=== PATIENT | male | born 1980 | race Caucasian/White ===

== ENCOUNTER 2017-01-20 11:43 | Inpatient (IN) | payer OTHER ==
[~2017-01-20] VITALS: Ht 175.3 cm; Wt 96.8 kg
[2017-01-20] MEDS ORDERED: NACL 0.9% 3 ML SYG IV SCH (14:30)
[2017-01-20] MEDS ORDERED: NICOTINE (21 MG/24 HR) PATCH TRANSDERM ONE (14:30)
--- NOTE | 2017-01-20 14:53 | HP ---
Date/Time of Note Date/Time of Note DATE: 01/20/17 TIME: 14:41 Assessment/Plan VTE Prophylaxis VTE Prophylaxis Intervention: SCD's Assessment/Plan Assessment/Plan 36 yo M presented with dark urine and myalgias after working out hard for the first time in 2 years, found to have marked CK elevation. Clinical scenario consistent with rhabdomyolysis Rhabdo -aggressive IVFs -check CM in AM Transaminitis: likely 2/2 rhabdo -recheck in AM. If not improving, check Hepatitis serologies and abd US PSYCH -cont home clonidine, Resperal -NRT general diet SQH HPI/ROS Admit Date/Time Admit Date/Time Jan 20, 2017 at 13:45 Hx of Present Illness CC: "I kept going until I won the bet" HPI 36 yo M with pmhx tobacco abuse transferred from [facility] where he had presented with dark urine and mylagias, CK found to be >20k. Pt is a self described "gym rat," though states he hadn't worked out in 2 years. Made a bet 2 days ago with someone about how many push ups he could do and stated he kept going "until I won the bet." Since yesterday pt has been having severe myalgias and dark urine. Presented to OSH and found to have rhabdo PMMhx: Bipolar d/o tobacco abuse Soc Hx: lives in the community Exam/Review of Systems Exam Exam nad EOMI MMM covered in tattoos no mrg lungs clear abd soft no rashes [facility] labs 9.1>17.5/48<208 CK >20k, ALT 291, AST 915, Cr 0.9 INR 0.9, albumin 4.5 No UA done Medications Medications Current Medications Sodium Chloride (NS) 1,000 ml @ 250 mls/hr Q4H IV ; Start 01/20/17 at 14:15; Status UNV Nicotine (Nicoderm 21 Mg/ 24hr) 1 patch ONCE ONCE TRANSDERM ; Start 01/20/17 at 14:30; Stop 01/20/17 at 14:31; Status UNV Heparin Sodium (Porcine) (Heparin (5000 Units/0.5 ml)) 5,000 unit Q8 SC ; Start 01/20/17 at 22:00; Status UNV BRANDON KHOURY MD Jan 20, 2017 14:53
[2017-01-20] MEDS ORDERED: NICOTINE POLACRILEX 2 MG GUM BUCCAL PRN (15:00)
[2017-01-20] MEDS: SOD CHLORIDE 0.9% 1,000 ML IV SCH ×4 (15:04→22:15)
[2017-01-20] MEDS: NICOTINE (21 MG/24 HR) PATCH TRANSDERM SCH (15:15)
[2017-01-20] MEDS: traMADol 50 MG TAB PO PRN ×2 (15:16→21:18)
[2017-01-20 15:27] VITALS: Ht 175.3 cm; Wt 96.8 kg
[2017-01-20 19:57] VITALS: BP 129/77; RESP 18
[2017-01-20] MEDS: HEPARIN 5,000 UNIT/0.5 ML VIAL SC SCH (21:24)
[2017-01-20] MEDS ORDERED: ZOLPIDEM 5 MG TAB PO ONE (23:00)
[2017-01-21 02:09] VITALS: BP 118/73; RESP 18
[2017-01-21] MEDS: SOD CHLORIDE 0.9% 1,000 ML IV SCH ×5 (02:15→18:09)
[2017-01-21] MEDS: HEPARIN 5,000 UNIT/0.5 ML VIAL SC SCH ×3 (06:21→21:50)
[2017-01-21 06:39] LABS: ALBUMIN 3.4 g/dl (3.3-4.9); ALBUMIN/GLOBULIN RATIO 1.36; BILIRUBIN,INDIRECT 0.4 mg/dl (0-1.1); BILIRUBIN,TOTAL 0.4 mg/dl (0.2-1.3); CALCIUM 8.6 mg/dl (8.4-10.2); CREATININE 0.87 mg/dl (0.61-1.24); POTASSIUM 4.3 mmol/L (3.5-5.1); TOTAL PROTEIN 5.9 g/dl (6.1-8.1)
[2017-01-21] MEDS: NICOTINE (21 MG/24 HR) PATCH TRANSDERM SCH (08:29)
[2017-01-21] MEDS: RISPERIDONE 2 MG TAB PO SCH (08:30)
[2017-01-21 08:38] VITALS: BP 124/70; PULSE 82; RESP 18
[2017-01-21] MEDS: traMADol 50 MG TAB PO PRN (08:41)
[2017-01-21] MEDS ORDERED: NICOTINE (21 MG/24 HR) PATCH TRANSDERM SCH (09:00)
[2017-01-21 12:04] LABS: HEPATITIS B CORE ANTIBODY NEGATIVE (NEGATIVE)
--- NOTE | 2017-01-21 12:58 | RADRPT ---
PROCEDURE: US right upper quadrant abdomen. CLINICAL INDICATION: Elevated liver function tests TECHNIQUE: Multiple real-time images were acquired of the patient's right upper quadrant abdomen utilizing a high resolution transducer. COMPARISON: None FINDINGS: The liver demonstrates normal echogenicity and mildly enlarged size measuring 18.8 cm without focal lesions. Patent portal vein. Normal gallbladder without gallstones, pericholecystic fluid or gallbla dder wall thickening. Negative sonographic Khalil's sign. No intrahepatic or extrahepatic biliary d ilatation. The common bile duct measures 3 mm in maximal dimension. The visualized portions of the pancreas are normal. The right kidney is normal size with normal echogenicity and morphology. The right kidney measures 11.1 cm. No hydronephrosis or perinephric fluid collections. There are no ar eas of increased echogenicity to suggest nephrolithiasis. Normal caliber aorta and IVC. No peritonea l free fluid. IMPRESSION: Normal right upper quadrant abdominal ultrasound. RPTAT:AAJJ Physician Addie Date Time Electronically viewed and signed by Physician Addie on 01/21/2017 12:58 /
[2017-01-21 13:28] VITALS: BP 128/65; PULSE 76; RESP 18
--- NOTE | 2017-01-21 13:28 | PN ---
Date/Time of Note Date/Time of Note DATE: 01/21/17 TIME: 13:27 Assessment/Plan VTE Prophylaxis VTE Prophylaxis Intervention: SCD's Lines/Catheters IV [facility] Peripheral IV Urinary Cath still in place: No Assessment/Plan Assessment/Plan 36 yo M presented with dark urine and myalgias after working out hard for the first time in 2 years, found to have marked CK elevation. Clinical scenario consistent with rhabdomyolysis Rhabdo -cont aggressive IVFs -re check CM in AM Transaminitis: likely 2/2 rhabdo Hep C: incidental finding. will dw pt prior to discharge. 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 PSYCH -cont home clonidine, Resperal -NRT general diet SQH Subjective 24 Hr Interval Summary Free Text/Dictation Pt requesting more pain medication Exam/Review of Systems Vital Signs Vitals Vital Signs Date Time Temp Pulse Resp B/P Pulse Ox O2 Delivery O2 Flow Rate FiO2 01/21/17 08:38 98.0 82 18 124/70 96 Room Air Intake and Output 01/20/17 01/20/17 01/21/17 15:00 23:00 07:00 Intake Total 1000 ml 1840 ml Output Total 500 ml Balance 1000 ml 1340 ml Exam nad no mrg lungs clear abd soft no rashes labs: Hep A exposure v vaccination, Hep B vaccinated, +HepC, -HIV Liver US nl UTox + for THC and opiates (likely got opiates at OSH prior to transfer) Results Result Diagram: 01/21/17 0545 Results 24 hrs Laboratory Tests Test 01/21/17 05:45 01/21/17 10:25 Sodium Level 140 Potassium Level 4.3 Chloride Level 109 Carbon Dioxide Level 25 Anion Gap 10 Blood Urea Nitrogen 13 Creatinine 0.87 Glucose Level 101 Calcium Level 8.6 Total Bilirubin 0.4 Direct Bilirubin 0.00 Indirect Bilirubin 0.4 Aspartate Amino Transf (AST/SGOT) 1185 H Alanine Aminotransferase (ALT/SGPT) 385 H Alkaline Phosphatase 73 Creatine Kinase 55137 H Total Protein 5.9 L Albumin 3.4 Globulin 2.50 Albumin/Globulin Ratio 1.36 Hepatitis A Antibody Total Pending Hepatitis B Surface Antigen NEGATIVE Hepatitis B Surface Antibody POSITIVE H Hepatitis B Core Total Antibody Pending Hepatitis C Antibody Pending HIV (1&2) Antibody Pending Medications Medications Current Medications Sodium Chloride (NS) 1,000 ml @ 125 mls/hr Q8H IV Last administered on 05:21; Admin Dose 250 MLS/HR; Start 01/20/17 at 14:15 Heparin Sodium (Porcine) (Heparin (5000 Units/0.5 ml)) 5,000 unit Q8 SC Last administered on 01/21/17 06:21; Admin Dose 5,000 UNIT; Start 01/20/17 at 22:00 Nicotine Polacrilex (Nicorette) 2 mg Q2H PRN BUCCAL ANXIETY; Start 01/20/17 at 15:00 Clonidine (Catapres) 0.2 mg TID PO Last administered on 01/21/17 08:34; Admin Dose 0.2 MG; Start 01/20/17 at 21:00 Risperidone (Risperdal) 2 mg DAILY PO Last administered on 01/21/17 08:30; Admin Dose 2 MG; Start 01/21/17 at 09:00 Tramadol HCl (Ultram) 50 mg Q6H PRN PO pain Last administered on 01/21/17 08: 41; Admin Dose 50 MG; Start 01/20/17 at 15:00 Nicotine (Nicoderm 21 Mg/ 24hr) 1 patch DAILY TRANSDERM Last administered on 08:29; Admin Dose 1 PATCH; Start 01/20/17 at 15:30 BRANDON KHOURY MD Jan 21, 2017 13:28
[2017-01-21 13:41] LABS: OPIATES Positive (NEGATIVE)
[2017-01-21 13:42] LABS: BARBITURATES Negative (NEGATIVE); BENZODIAZEPINES Negative (NEGATIVE); CANNABINOIDS Positive (NEGATIVE); COCAINE Negative (NEGATIVE)
[2017-01-21] MEDS: morphine 2 MG INJ IV PRN ×2 (14:04→18:07)
[2017-01-21] MEDS: GUAIFENESIN 20 MG/ML 5ML CUP PO PRN (19:58)
[2017-01-21 20:01] VITALS: BP 126/58; RESP 18
[2017-01-21] MEDS ORDERED: DIAZEPAM 5 MG/ML SYG IV ONE (20:30)
[2017-01-22 01:46] VITALS: BP 110/62; RESP 18
[2017-01-22] MEDS: SOD CHLORIDE 0.9% 1,000 ML IV SCH ×4 (02:36→19:38)
[2017-01-22] MEDS: morphine 2 MG INJ IV PRN ×2 (06:08→11:06)
[2017-01-22] MEDS: GUAIFENESIN 20 MG/ML 5ML CUP PO PRN (06:08)
[2017-01-22] MEDS: HEPARIN 5,000 UNIT/0.5 ML VIAL SC SCH ×3 (06:13→21:40)
[2017-01-22 07:03] LABS: ALBUMIN/GLOBULIN RATIO 1.25; CALCIUM 8.6 mg/dl (8.4-10.2); CREATININE 0.95 mg/dl (0.61-1.24); POTASSIUM 4.1 mmol/L (3.5-5.1); TOTAL PROTEIN 5.4 g/dl (6.1-8.1)
[2017-01-22 08:00] VITALS: BP 106/61; PULSE 91; RESP 16
[2017-01-22 08:27] LABS: BILIRUBIN,INDIRECT 0.1 mg/dl (0-1.1); BILIRUBIN,TOTAL 0.1 mg/dl (0.2-1.3)
[2017-01-22] MEDS: RISPERIDONE 2 MG TAB PO SCH (09:40)
[2017-01-22] MEDS: traMADol 50 MG TAB PO PRN (09:40)
[2017-01-22] MEDS: NICOTINE (21 MG/24 HR) PATCH TRANSDERM SCH (09:41)
[2017-01-22 13:31] VITALS: BP 90/45; RESP 16
--- NOTE | 2017-01-22 14:26 | PN ---
Date/Time of Note Date/Time of Note DATE: 01/22/17 TIME: 14:24 Assessment/Plan VTE Prophylaxis VTE Prophylaxis Intervention: SCD's Lines/Catheters IV Catheter Type (from Nrs): Peripheral IV Urinary Cath still in place: No Assessment/Plan Assessment/Plan 36 yo M presented with dark urine and myalgias after working out hard for the first time in 2 years, found to have marked CK elevation. Clinical scenario consistent with rhabdomyolysis Rhabdo -cont aggressive IVFs -re check CM in AM Transaminitis: likely 2/2 rhabdo Hep C: Pt states he was actually treated with IFN several years ago await VL to eval for recurrence PSYCH -cont home clonidine, Resperal -NRT general diet SQH Subjective 24 Hr Interval Summary Free Text/Dictation R shoulder pain overnight Exam/Review of Systems Vital Signs Vitals Vital Signs Date Time Temp Pulse Resp B/P Pulse Ox O2 Delivery O2 Flow Rate FiO2 01/22/17 13:31 98.3 67 16 90/45 92 01/22/17 08:00 Room Air Intake and Output 01/21/17 01/21/17 01/22/17 15:00 23:00 07:00 Intake Total 3070 ml 2150 ml Output Total 450 ml Balance 3070 ml 1700 ml Exam nad no mrg lungs clear abd soft no rashes Results Result Diagram: 01/22/17 0552 Results 24 hrs Laboratory Tests Test 01/22/17 05:52 Sodium Level 138 Potassium Level 4.1 Chloride Level 110 Carbon Dioxide Level 26 Anion Gap 6 L Blood Urea Nitrogen 13 Creatinine 0.95 Glucose Level 122 Calcium Level 8.6 Total Bilirubin 0.1 L Direct Bilirubin 0.00 Indirect Bilirubin 0.1 Aspartate Amino Transf (AST/SGOT) 1176 H Alanine Aminotransferase (ALT/SGPT) 442 H Alkaline Phosphatase 71 Creatine Kinase 22874 #H Total Protein 5.4 L Albumin 3.0 L Globulin 2.40 Albumin/Globulin Ratio 1.25 Medications Medications Current Medications Sodium Chloride (NS) 1,000 ml @ 125 mls/hr Q8H IV Last administered on 11:06; Admin Dose 125 MLS/HR; Start 01/20/17 at 14:15 Heparin Sodium (Porcine) (Heparin (5000 Units/0.5 ml)) 5,000 unit Q8 SC Last administered on 9/22/17at 13:49; Admin Dose 5,000 UNIT; Start 01/20/17 at 22:00 Nicotine Polacrilex (Nicorette) 2 mg Q2H PRN BUCCAL ANXIETY; Start 01/20/17 at 15:00 Clonidine (Catapres) 0.2 mg TID PO Last administered on 01/22/17 09:41; Admin Dose 0.2 MG; Start 01/20/17 at 21:00 Risperidone (Risperdal) 2 mg DAILY PO Last administered on 01/22/17 09:40; Admin Dose 2 MG; Start 01/21/17 at 09:00 Tramadol HCl (Ultram) 50 mg Q6H PRN PO pain Last administered on 01/22/17 09: 40; Admin Dose 50 MG; Start 01/20/17 at 15:00 Nicotine (Nicoderm 21 Mg/ 24hr) 1 patch DAILY TRANSDERM Last administered on 09:41; Admin Dose 1 PATCH; Start 01/20/17 at 15:30 Morphine Sulfate (morphine) 2 mg Q4H PRN IV pain Last administered on 11:06; Admin Dose 2 MG; Start 01/21/17 at 13:30 Guaifenesin (Robitussin Liquid Cup) 100 mg Q4H PRN PO COUGH Last administered on 01/22/17 06:08; Admin Dose 100 MG; Start 01/21/17 at 18:30 BRANDON KHOURY MD Jan 22, 2017 14:26
[2017-01-22] MEDS: morphine 4 MG/ML VIAL IV PRN ×2 (15:05→20:08)
[2017-01-22 19:59] VITALS: BP 126/61; RESP 20
[2017-01-22] MEDS ORDERED: DIAZEPAM 5 MG/ML SYG IV ONE (22:00)
[2017-01-23 02:00] VITALS: BP 119/59; RESP 20
[2017-01-23] MEDS: SOD CHLORIDE 0.9% 1,000 ML IV SCH ×2 (03:34→10:44)
[2017-01-23] MEDS: HEPARIN 5,000 UNIT/0.5 ML VIAL SC SCH (06:12)
[2017-01-23 06:37] LABS: ALBUMIN 3.3 g/dl (3.3-4.9); ALBUMIN/GLOBULIN RATIO 1.17; BILIRUBIN,INDIRECT 0.2 mg/dl (0-1.1); BILIRUBIN,TOTAL 0.2 mg/dl (0.2-1.3); CALCIUM 8.3 mg/dl (8.4-10.2); CREATININE 0.95 mg/dl (0.61-1.24); POTASSIUM 4.5 mmol/L (3.5-5.1); TOTAL PROTEIN 6.1 g/dl (6.1-8.1)
[2017-01-23 07:56] VITALS: BP 121/75; RESP 18
[2017-01-23] MEDS: morphine 4 MG/ML VIAL IV PRN (08:07)
[2017-01-23] MEDS: NICOTINE (21 MG/24 HR) PATCH TRANSDERM SCH (08:08)
[2017-01-23] MEDS: RISPERIDONE 2 MG TAB PO SCH (08:11)
[2017-01-23] MEDS ORDERED: NICO1PAT43 TD (10:15)
[2017-01-23] MEDS ORDERED: NICO1PAT6 TD (10:15)
--- NOTE | 2017-01-23 10:17 | PDOCDIS ---
Discharge Instructions CONDITION Patient Condition: Stable HOME CARE INSTRUCTIONS: Special Diet: REGULAR FOLLOW UP/APPOINTMENTS Follow-up Plan I will be calling your this week with the results of your Hepatitis C viral load. Be sure to drink lots of water at home and ease slowly back into exercise BRANDON KHOURY MD Jan 23, 2017 10:17
--- NOTE | 2017-01-23 10:28 | DS ---
Date/Time of Note Date/Time of Note DATE: 01/23/17 TIME: 10:18 Discharge Summary Admission/Discharge Info Admit Date/Time Jan 20, 2017 at 13:45 Discharge Date/Time Discharge Diagnosis rhabdomyolysis, previous Hepatitis C exposure, tobacco abuse Patient Condition: Good Procedures CK 55K on admission-->24K on date of discharge HepC Ab +,VL in process HepB serologies c/w previous vaccination, HepA serologies c/w previous vaccination v previous infection Liver US unremarkable Hx of Present Illness CC: "I kept going until I won the bet" HPI 36 yo M with pmhx tobacco abuse transferred from [facility] where he had presented with dark urine and mylagias, CK found to be >20k. Pt is a self described "gym rat," though states he hadn't worked out in 2 years. Made a bet 2 days ago with someone about how many push ups he could do and stated he kept going "until I won the bet." Since yesterday pt has been having severe myalgias and dark urine. Presented to OSH and found to have rhabdo PMMhx: Bipolar d/o tobacco abuse Soc Hx: lives in the community Hospital Course Pt got aggressive IVFs, CK and transaminases slowly improved. Given transaminitis liver US obtained which was unremarkable. Hepatitis serologies sent. HepA and B consistent with previous vaccination. HepC Ab +. Pt states he was previously treated with 9 mos of IFN. HepC VL in process. I informed pt I would contact his this week with test results. Pt started on NRT here for tobacco abuse. Home mental health meds also continued during his stay and should be continued at discharge. Home Meds Active Scripts Nicotine* (Nicotine* Patch) 7 mg/day Patch, 1 PATCH TD DAILY for 14 Days, #14 PATCH use these after you stop with the higher dose patches Prov:BRANDON KHOURY MD 01/23/17 Nicotine* (Nicotine* Patch) 21 mg/day Patch, 1 EACH TD DAILY for 14 Days, #14 PATCH use these high dose patches first then change to the low dose when you run out, or sooner if you are so inclined Prov:BRANDON KHOURY MD 01/23/17 Follow-up Plan I will be calling your this week with the results of your Hepatitis C viral load. Be sure to drink lots of water at home and ease slowly back into exercise Primary Care Provider Not On Staff Doctor Time spent on discharge: > 30 minutes Pending Labs Laboratory Tests Test 01/23/17 05:16 Sodium Level 140mmol/L (135-144) Potassium Level 4.5mmol/L (3.5-5.1) Chloride Level 110mmol/L (97-110) Carbon Dioxide Level 26mmol/L (21-31) Anion Gap 9 (8-16) Blood Urea Nitrogen 11mg/dl (7-20) Creatinine 0.95mg/dl (0.61-1.24) Glucose Level 97mg/dl (70-220) Calcium Level 8.3mg/dl (8.4-10.2) Total Bilirubin 0.2mg/dl (0.2-1.3) Direct Bilirubin 0.00mg/dl (0.00-0.20) Indirect Bilirubin 0.2mg/dl (0-1.1) Aspartate Amino Transf (AST/SGOT) 848IU/L (15-46) Alanine Aminotransferase (ALT/SGPT) 417IU/L (13-69) Alkaline Phosphatase 76IU/L (42-121) Creatine Kinase 90752AB/L (23-200) Total Protein 6.1g/dl (6.1-8.1) Albumin 3.3g/dl (3.3-4.9) Globulin 2.80g/dl (1.3-3.2) Albumin/Globulin Ratio 1.17 BRANDON KHOURY MD Jan 23, 2017 10:28
[2017-01-23] MEDS ORDERED: CLON0.2T5 PO (10:33)
== END 2017-01-23 11:18 | disposition home or self-care (01) | DRG 558 ==
LOC: MS2 13:45
PROVIDERS: ADMIT Internal Medicine; ATTEND Internal Medicine
DX: M62.82 Rhabdomyolysis (principal); B18.1 Chronic viral hepatitis B without delta-agent; B18.2 Chronic viral hepatitis C; F17.210 Nicotine dependence, cigarettes, uncomplicated; F11.10 Opioid abuse, uncomplicated; F12.10 Cannabis abuse, uncomplicated; F31.9 Bipolar disorder, unspecified
CPT/HCPCS: 76705; 80053; 80307; 82550; 86703; 86704; 86706; 86708; 86709; 86803; 87340; J1644; J2270; J3360; J7030